=== PATIENT | male | born 1950 | race Caucasian/White ===

== ENCOUNTER 2019-06-24 14:40 | Inpatient (IN) | payer MEDICARE, OTHER ==
[~2019-06-24] VITALS: Ht 185.4 cm; Wt 75.0 kg
[2019-06-24] MEDS ORDERED: nitroGLYCERIN 0.4mg SUBLingual tab SL ONE (14:49)
--- NOTE | 2019-06-24 14:56 | NUR ---
COMFIRMED PT DOES NOT TAKE ANY ERECTILE DYSFUNCTION MEDICATIONS AND ADMINISTERED NITRO ORDERED
[2019-06-24 15:07] LABS: BASOPHILS # (AUTO) 0.1 X10'3 (0-0.2); BASOPHILS % (AUTO) 0.3 % (0-1); EOSINOPHILS % (AUTO) 0.1 % (0-6); HEMATOCRIT 42.8 % (42.0-52.0); HEMOGLOBIN 14.4 g/dl (14.0-17.9); LYMPHOCYTES # (AUTO) 0.8 X10'3 (1.1-4.8); LYMPHOCYTES % (AUTO) 4.1 % (21-51); MEAN CORPUSCULAR HEMOGLOBIN 31.2 PG (27.0-31.0); MEAN CORPUSCULAR HGB CONC 33.7 g/dL (33.0-36.5); MEAN CORPUSCULAR VOLUME 92.6 FL (78-98); MEAN PLATELET VOLUME 9.4 FL (7.4-10.4); MONOCYTES # (AUTO) 1.2 X10'3 (0-0.9); MONOCYTES % (AUTO) 6.4 % (2-12); NEUTROPHILS # (AUTO) 16.6 X10'3 (1.8-7.7); NEUTROPHILS % (AUTO) 89.1 % (42-75); PLATELET COUNT 322 X10'3 (140-440); RED BLOOD COUNT 4.62 X10'6 (4.70-6.10); RED CELL DISTRIBUTION WIDTH 13.5 % (11.5-14.5); WHITE BLOOD COUNT 18.7 X10'3 (4.5-11.0)
[2019-06-24 15:16] LABS: PARTIAL THROMBOPLASTIN TIME 28 SECONDS (22-32)
[2019-06-24 15:19] LABS: ALANINE AMINOTRANSFERASE 84 U/L (12-78); ALBUMIN 2.1 G/DL (3.4-5.0); ALBUMIN/GLOBULIN RATIO 0.5 (1.1-1.5); ALKALINE PHOSPHATASE 80 IU/L (46-116); ANION GAP 10 (8-16); ASPARTATE AMINO TRANSFERASE 39 U/L (10-37); BILIRUBIN,TOTAL 1.2 MG/DL (0.1-1.0); BLOOD UREA NITROGEN 23 MG/DL (7-18); CALCIUM 7.4 MG/DL (8.5-10.1); CHLORIDE 102 MMOL/L (99-107); CREATININE 1.21 MG/DL (0.60-1.10); GLUCOSE 102 MG/DL (70-104); POTASSIUM 3.5 MMOL/L (3.5-5.1); SODIUM 138 MMOL/L (135-145); TOTAL CARBON DIOXIDE 25.9 MMOL/L (24-32); TOTAL PROTEIN 6.1 G/DL (6.4-8.2); eGFR 59 ML/MIN
[2019-06-24] MEDS ORDERED: nitroGLYCERIN 0.4mg/hour patch TD ONE (15:20)
[2019-06-24] MEDS ORDERED: normal saline 1000ML IV soln IVB ONE (15:20)
[2019-06-24] MEDS ORDERED: CefTRIAXone 2gm/D5W 50ml 50 ML IV ONE (15:35)
[2019-06-24] MEDS ORDERED: azithromycin/NS 500mg/250ml 250 ML IV ONE (15:35)
[2019-06-24] MEDS ORDERED: magnesium hydroxide 30ml (MOM) UD suspension PO PRN (16:05)
[2019-06-24] MEDS ORDERED: acetaminophen 325mg tablet PO PRN (16:05)
[2019-06-24] MEDS ORDERED: ondansetron/PF 4mg/2ml inj IV PRN (16:05)
[2019-06-24] MEDS ORDERED: mag hydrox/Alum hydrox/simeth 30ml oral suspension PO PRN (16:05)
[2019-06-24] MEDS: normal saline 1000ml 1,000 ML IV SCH (16:32)
[2019-06-24] MEDS ORDERED: iohexol 350MG/ML 100ml bottle IV ONE (17:53)
--- NOTE | 2019-06-24 17:54 | NUR ---
Pt out to CT
--- NOTE | 2019-06-24 18:35 | NUR ---
Patient in room PCU 3012. I have received report from Monserrat MACK and had the opportunity to ask questions and assume patient care.
[2019-06-24] MEDS: enoxaparin 80mg/0.8ml syringe SUBCUT SCH (19:45)
[2019-06-24] MEDS ORDERED: heparin, porcine 5000 units/ml vial SQ SCH (20:00)
[2019-06-24 22:00] VITALS: BP 116/68
--- NOTE | 2019-06-24 22:00 | NUR ---
ED nurse reported that pt had not urinated at all during time in ED. I asked pt to void after being transferred to PCU and again at 2200. Bladder scan showed 8 mL in bladder.
[2019-06-25 02:00] VITALS: BP 118/64
--- NOTE | 2019-06-25 02:24 | NUR ---
Paged Dr. Estrada: BarraganSteve [id number]- Dx: pneumonia. VS stable, 92% on RA. Just wants sleeping pill because he hasn't been able to sleep for the past couple days, is exhausted. Thanks [phone] Judy
[2019-06-25] MEDS ORDERED: temazepam 15mg capsule PO PRN (02:35)
--- NOTE | 2019-06-25 02:37 | NUR ---
Paged Dr. Estrada MESSAGE: Steve Barragan [phone]- Pharmacy said Restoril is a capsule and can't be cut in half for 7.5 mg. Can he have 15 mg or melatonin instead? Thank you [phone] Judy
[2019-06-25 03:13] LABS: BASOPHILS # (AUTO) 0.2 X10'3 (0-0.2); BASOPHILS % (AUTO) 0.6 % (0-1); EOSINOPHILS % (AUTO) 0.2 % (0-6); HEMATOCRIT 38.8 % (42.0-52.0); LYMPHOCYTES # (AUTO) 1.4 X10'3 (1.1-4.8); LYMPHOCYTES % (AUTO) 5.1 % (21-51); MEAN CORPUSCULAR HEMOGLOBIN 31.2 PG (27.0-31.0); MEAN CORPUSCULAR HGB CONC 33.5 g/dL (33.0-36.5); MEAN PLATELET VOLUME 8.8 FL (7.4-10.4); MONOCYTES # (AUTO) 1.2 X10'3 (0-0.9); MONOCYTES % (AUTO) 4.7 % (2-12); NEUTROPHILS # (AUTO) 23.5 X10'3 (1.8-7.7); NEUTROPHILS % (AUTO) 89.4 % (42-75); PLATELET COUNT 290 X10'3 (140-440); RED BLOOD COUNT 4.17 X10'6 (4.70-6.10); RED CELL DISTRIBUTION WIDTH 13.4 % (11.5-14.5)
[2019-06-25] MEDS: temazepam 15mg capsule PO PRN ×2 (03:19→22:58)
[2019-06-25 03:29] LABS: ALBUMIN 1.9 G/DL (3.4-5.0); ANION GAP 6 (8-16); BLOOD UREA NITROGEN 20 MG/DL (7-18); BUN/CREATININE RATIO 16.8 (5.4-32.0); CALCIUM 7.5 MG/DL (8.5-10.1); CHLORIDE 104 MMOL/L (99-107); CREATININE 1.19 MG/DL (0.60-1.10); GLUCOSE 87 MG/DL (70-104); POTASSIUM 3.8 MMOL/L (3.5-5.1); SODIUM 138 MMOL/L (135-145); TOTAL CARBON DIOXIDE 27.6 MMOL/L (24-32); eGFR 60 ML/MIN
[2019-06-25 03:35] LABS: WHITE BLOOD COUNT 26.3 X10'3 (4.5-11.0)
--- NOTE | 2019-06-25 03:46 | NUR ---
PAGE TO -3012 Yoly CARRANZA HAS CRITICAL WBC 26.3. CURRENTLY ON ROCEPHIN AND ZITHROMAX
[2019-06-25] MEDS: normal saline 1000ml 1,000 ML IV SCH (04:23)
[2019-06-25 06:00] VITALS: BP 107/70
--- NOTE | 2019-06-25 06:22 | NUR ---
Problems reprioritized. Patient report given, questions answered & plan of care reviewed with Juanito RN.
--- NOTE | 2019-06-25 06:25 | NUR ---
Patient in room PCU 3012. I have received report from MARTINA Kim and had the opportunity to ask questions and assume patient care.
[2019-06-25] MEDS: enoxaparin 80mg/0.8ml syringe SUBCUT SCH ×2 (07:41→20:27)
[2019-06-25] MEDS ORDERED: CefTRIAXone 2gm/D5W 50ml 50 ML IV SCH (08:00)
[2019-06-25] MEDS ORDERED: azithromycin/NS 500mg/250ml 250 ML IV SCH (08:00)
--- NOTE | 2019-06-25 08:30 | NUR ---
Dr. Rose aware of pt's critically high WBC 26.3-orders received, blood cultures drawn this am and MD states he will write further orders for new antibiotic medication.
[2019-06-25] MEDS ORDERED: CEFTAROLINE FOSAMIL IV SCH (09:15)
[2019-06-25] MEDS ORDERED: NORMAL SALINE IV SCH (09:15)
[2019-06-25 09:59] LABS: TOTAL CELLS COUNTED 100
[2019-06-25] MEDS ORDERED: pneumococcal 23-VAL P-sac vacc 25 mcg/0.5ml vial IMVAC ONE (10:00)
[2019-06-25] MEDS ORDERED: FLU VACC QS2019-20(6MOS UP)/PF 60 MCG/0.5 ML SYRINGE IMVAC ONE (10:00)
[2019-06-25 10:07] LABS: PLATELET ESTIMATE NORMAL; TOXIC GRANULATION 2+
[2019-06-25] MEDS ORDERED: NO HOME MEDS (11:32)
[2019-06-25] MEDS: cefepime 2g/NS 100ml ADVANTAGE 100 ML IV SCH ×2 (11:51→20:28)
[2019-06-25 15:00] VITALS: BP 115/64
--- NOTE | 2019-06-25 16:02 | NUR ---
Malnutrition consult: Pt admit w/ PNA and transaminitis s/p EKG. Pt see by RD and reports wt loss mostly r/t inability to sleep for days effecting PO. Pt has normal strength, no visible signs of muscle/fat wasting, no edema/wounds, and PO at least 50% breakfast left on table during RD visit. At this time pt fails to meet minimum malnutrition criteria. Will continue to monitor. Addendum: 06/25/19 at [address] Amended: Links added.
[2019-06-25 18:00] VITALS: BP 126/59
--- NOTE | 2019-06-25 18:30 | NUR ---
Patient in room PCU 3012. I have received report from MARTINA Cervantes and had the opportunity to ask questions and assume patient care.
--- NOTE | 2019-06-25 18:43 | NUR ---
Problems reprioritized. Patient report given, questions answered & plan of care reviewed with Adrienne Sosa RN and MARTINA Marinelli.
[2019-06-25 22:00] VITALS: BP 146/76
[2019-06-25 23:39] LABS: URINE AMPHETAMINE SCREEN NEGATIVE (Neg); URINE BARBITUATE SCREEN NEGATIVE (Neg); URINE BENZODIAZEPINES SCREEN NEGATIVE (Neg); URINE CANNABINOID SCREEN POSITIVE (Neg); URINE COCAINE SCREEN NEGATIVE (Neg); URINE METHADONE SCREEN NEGATIVE (Neg); URINE OPIATE SCREEN NEGATIVE (Neg); URINE PHENCYCLIDINE SCREEN NEGATIVE (Neg)
[2019-06-26] VITALS (7 sets, daily range): BP systolic 141–161; BP diastolic 77–98
[2019-06-26 06:02] LABS: BASOPHILS # (AUTO) 0.1 X10'3 (0-0.2); BASOPHILS % (AUTO) 0.5 % (0-1); EOSINOPHILS # (AUTO) 0.5 X10'3 (0-0.9); EOSINOPHILS % (AUTO) 3.7 % (0-6); HEMATOCRIT 37.1 % (42.0-52.0); HEMOGLOBIN 12.4 g/dl (14.0-17.9); LYMPHOCYTES # (AUTO) 1.4 X10'3 (1.1-4.8); LYMPHOCYTES % (AUTO) 10.6 % (21-51); MEAN CORPUSCULAR HEMOGLOBIN 31.3 PG (27.0-31.0); MEAN CORPUSCULAR HGB CONC 33.4 g/dL (33.0-36.5); MEAN CORPUSCULAR VOLUME 93.6 FL (78-98); MEAN PLATELET VOLUME 8.9 FL (7.4-10.4); MONOCYTES # (AUTO) 0.8 X10'3 (0-0.9); MONOCYTES % (AUTO) 5.9 % (2-12); NEUTROPHILS # (AUTO) 10.2 X10'3 (1.8-7.7); NEUTROPHILS % (AUTO) 79.3 % (42-75); PLATELET COUNT 330 X10'3 (140-440); RED BLOOD COUNT 3.97 X10'6 (4.70-6.10); RED CELL DISTRIBUTION WIDTH 13.3 % (11.5-14.5); WHITE BLOOD COUNT 12.9 X10'3 (4.5-11.0)
[2019-06-26 06:08] LABS: ALBUMIN 1.7 G/DL (3.4-5.0); ANION GAP 6 (8-16); BLOOD UREA NITROGEN 19 MG/DL (7-18); BUN/CREATININE RATIO 17.3 (5.4-32.0); CALCIUM 7.5 MG/DL (8.5-10.1); CHLORIDE 107 MMOL/L (99-107); GLUCOSE 88 MG/DL (70-104); POTASSIUM 3.6 MMOL/L (3.5-5.1); SODIUM 140 MMOL/L (135-145); TOTAL CARBON DIOXIDE 27.4 MMOL/L (24-32); eGFR 66 ML/MIN
--- NOTE | 2019-06-26 06:13 | NUR ---
Problems reprioritized. Patient report given, questions answered & plan of care reviewed with Shavon Gonzalez RN and MARTINA Graf.
--- NOTE | 2019-06-26 06:13 | NUR ---
Problems reprioritized. Patient report given, questions answered & plan of care reviewed with Sowmya RN.
--- NOTE | 2019-06-26 06:29 | NUR ---
Patient in room PCU 3012. I have received report from Adrienne/MARTINA Marinelli and had the opportunity to ask questions and assume patient care.
[2019-06-26] MEDS: cefepime 2g/NS 100ml ADVANTAGE 100 ML IV SCH ×2 (08:32→20:02)
[2019-06-26] MEDS: enoxaparin 80mg/0.8ml syringe SUBCUT SCH (08:32)
[2019-06-26] MEDS ORDERED: regadenoson 0.4mg/5ml syringe IV ONE (09:15)
[2019-06-26] MEDS ORDERED: nitroGLYCERIN 0.4mg SUBLingual tab SL PRN (09:15)
[2019-06-26] MEDS ORDERED: metoprolol tartrate 1mg/ml inj IV PRN (09:15)
[2019-06-26] MEDS ORDERED: aminophylline 250mg/10ml inj. IV PRN (09:15)
[2019-06-26] MEDS ORDERED: fluconazole 100mg tablet PO ONE (12:45)
--- NOTE | 2019-06-26 18:22 | NUR ---
Problems reprioritized. Patient report given, questions answered & plan of care reviewed with Wayne RN.
--- NOTE | 2019-06-26 18:24 | NUR ---
Patient in room PCU 3012. I have received report from Shavon Vazquez RN and had the opportunity to ask questions and assume patient care.
--- NOTE | 2019-06-26 18:25 | NUR ---
[place] documentation: I have reviewed and agree with interventions, assessments performed and documented by Lesia MACK. [place] Medication Administration: For this medication-pass time frame, medication were reviewed, dispensed, administered and documented per hospital policy by Lesia MACK.
--- NOTE | 2019-06-26 18:43 | NUR ---
NOTIFIED PAGER ID: [phone] MESSAGE: Steve Barragan, [phone]- pt has a AAA [id number] noted in chest CTA, pt BP is currently 161/84. no bp medications in EMAR please advise. Wayne MACK
[2019-06-26] MEDS ORDERED: hydrALAZINE 20mg/ml inj. IV PRN (19:00)
[2019-06-26] MEDS: lactobacillus rhamnosus 10,000 MMU CELLS/CAPSULE PO SCH (20:02)
[2019-06-27] VITALS (15 sets, daily range): BP systolic 141–171; BP diastolic 68–90
[2019-06-27 02:10] LABS: BASOPHILS % (AUTO) 0.6 % (0-1); EOSINOPHILS # (AUTO) 0.3 X10'3 (0-0.9); EOSINOPHILS % (AUTO) 3.8 % (0-6); HEMATOCRIT 37.9 % (42.0-52.0); HEMOGLOBIN 12.7 g/dl (14.0-17.9); LYMPHOCYTES # (AUTO) 1.1 X10'3 (1.1-4.8); LYMPHOCYTES % (AUTO) 13.3 % (21-51); MEAN CORPUSCULAR HGB CONC 33.6 g/dL (33.0-36.5); MEAN CORPUSCULAR VOLUME 92.2 FL (78-98); MEAN PLATELET VOLUME 8.7 FL (7.4-10.4); MONOCYTES # (AUTO) 0.6 X10'3 (0-0.9); MONOCYTES % (AUTO) 6.5 % (2-12); NEUTROPHILS # (AUTO) 6.5 X10'3 (1.8-7.7); NEUTROPHILS % (AUTO) 75.8 % (42-75); PLATELET COUNT 357 X10'3 (140-440); RED BLOOD COUNT 4.11 X10'6 (4.70-6.10); RED CELL DISTRIBUTION WIDTH 13.2 % (11.5-14.5); WHITE BLOOD COUNT 8.6 X10'3 (4.5-11.0)
[2019-06-27 02:15] LABS: ALBUMIN 1.6 G/DL (3.4-5.0); ANION GAP 6 (8-16); BLOOD UREA NITROGEN 16 MG/DL (7-18); BUN/CREATININE RATIO 15.5 (5.4-32.0); CALCIUM 7.9 MG/DL (8.5-10.1); CHLORIDE 105 MMOL/L (99-107); CREATININE 1.03 MG/DL (0.60-1.10); GLUCOSE 102 MG/DL (70-104); POTASSIUM 3.7 MMOL/L (3.5-5.1); SODIUM 136 MMOL/L (135-145); TOTAL CARBON DIOXIDE 25.5 MMOL/L (24-32); eGFR 71 ML/MIN
[2019-06-27] MEDS ORDERED: enoxaparin 40mg/0.4ml syringe SUBCUT SCH (08:00)
[2019-06-27] MEDS ORDERED: fluconazole 100mg tablet PO SCH (08:00)
[2019-06-27] MEDS: cefepime 2g/NS 100ml ADVANTAGE 100 ML IV SCH (08:17)
[2019-06-27] MEDS: lactobacillus rhamnosus 10,000 MMU CELLS/CAPSULE PO SCH (08:18)
[2019-06-27] MEDS ORDERED: aminophylline inj. 10 ML IV ONE (10:08)
[2019-06-27] MEDS ORDERED: FLUC100T PO (12:14)
[2019-06-27] MEDS ORDERED: LEVO750T21 PO (12:14)
[2019-06-27] MEDS ORDERED: CARV3.12 PO (12:16)
[2019-06-27] MEDS ORDERED: LISI2.5T2 PO (12:16)
[2019-06-27] MEDS ORDERED: ATOR20TA PO (13:26)
[2019-06-27] MEDS ORDERED: ASPI81TA52 PO (13:26)
[2019-06-27] MEDS ORDERED: CLOP75TA15 PO (13:26)
--- NOTE | 2019-06-27 14:57 | NUR ---
1400 discharged home: Written Instructions provided, Pt. understands the necessity of finding a PCP for follow up medical monitoring. New discharge medications are called to the pharmacist at [facility]. Transportation home is arranged by nursing and approved for taxi ride by Nursing Termite Treater Helper. Pt. drives and will drive his own vehicle to pickler helper his discharge medications. All belongings are with Pt. and he is in stable condition and steady on his feet and also without any incidence of chest pain today.
== END 2019-06-27 15:43 | disposition home or self-care (01) | DRG 871 ==
LOC: ER 14:40 → ED HOLD 16:03 → PCU 3S 19:15
PROVIDERS: ADMIT Family Medicine; ATTEND Family Medicine
PROC: B32T1ZZ Computerized Tomography (CT Scan) of Left Pulmonary Artery using Low Osmolar Contrast (ICD-10-PCS; 2019-06-24)
PROC: B3201ZZ Computerized Tomography (CT Scan) of Thoracic Aorta using Low Osmolar Contrast (ICD-10-PCS; 2019-06-24)
PROC: B32S1ZZ Computerized Tomography (CT Scan) of Right Pulmonary Artery using Low Osmolar Contrast (ICD-10-PCS; 2019-06-24)
PROC: 3E02340 Introduction of Influenza Vaccine into Muscle, Percutaneous Approach (ICD-10-PCS; principal; 2019-06-25)
PROC: 3E0234Z Introduction of Serum, Toxoid and Vaccine into Muscle, Percutaneous Approach (ICD-10-PCS; 2019-06-25)
PROC: 4A02XM4 Measurement of Cardiac Total Activity, External Approach (ICD-10-PCS; 2019-06-27)
PROC: 3E033HZ Introduction of Radioactive Substance into Peripheral Vein, Percutaneous Approach (ICD-10-PCS; 2019-06-27)
DX: A41.9 Sepsis, unspecified organism (principal); J18.1 Lobar pneumonia, unspecified organism; I21.29 ST elevation (STEMI) myocardial infarction involving other sites; I42.9 Cardiomyopathy, unspecified; F12.90 Cannabis use, unspecified, uncomplicated; R07.89 Other chest pain; F17.210 Nicotine dependence, cigarettes, uncomplicated; I45.10 Unspecified right bundle-branch block; N28.9 Disorder of kidney and ureter, unspecified; R74.0 Nonspecific elevation of levels of transaminase and lactic acid dehydrogenase [LDH]; Z23 Encounter for immunization; Z71.6 Tobacco abuse counseling
CPT/HCPCS: 36415; 71045; 71275; 78452; 80048; 80053; 80305; 82948; 83605; 84484; 85025; 85610; 85730; 87040; 87070; 87081; 90732; 93005; 93017; 93306; 96365; 99285; A9500; G0378; J0280; J0456; J0692; J0696; J0712; J1650; J2785; J7030; Q9967

== ENCOUNTER 2022-12-03 18:46 | Inpatient (IN) | payer MEDICARE ==
[~2022-12-03] VITALS: Ht 180.3 cm; Wt 65.9 kg
[~2022-12-03 18:46] MED LIST: ATOR20TA PO; CARV3.12 PO; CLOP75TA15 PO; LISI2.5T14 PO
[2022-12-03 19:47] LABS: BASOPHILS # (AUTO) 0.1 X10'3 (0-0.2); BASOPHILS % (AUTO) 0.8 % (0-1); EOSINOPHILS # (AUTO) 0.2 X10'3 (0-0.9); EOSINOPHILS % (AUTO) 2.9 % (0-6); HEMATOCRIT 47.6 % (42.0-52.0); HEMOGLOBIN 15.9 g/dl (14.0-17.9); LYMPHOCYTES % (AUTO) 26.9 % (21-51); MEAN CORPUSCULAR HEMOGLOBIN 30.9 PG (27.0-31.0); MEAN CORPUSCULAR HGB CONC 33.3 g/dL (33.0-36.5); MEAN CORPUSCULAR VOLUME 92.9 FL (78-98); MEAN PLATELET VOLUME 9.9 FL (7.4-10.4); MONOCYTES # (AUTO) 0.6 X10'3 (0-0.9); MONOCYTES % (AUTO) 8.6 % (2-12); NEUTROPHILS # (AUTO) 4.5 X10'3 (1.8-7.7); NEUTROPHILS % (AUTO) 60.8 % (42-75); PLATELET COUNT 174 X10'3 (140-440); RED BLOOD COUNT 5.13 X10'6 (4.70-6.10); RED CELL DISTRIBUTION WIDTH 13.9 % (11.5-14.5); WHITE BLOOD COUNT 7.3 X10'3 (4.5-11.0)
[2022-12-03 20:01] LABS: ALANINE AMINOTRANSFERASE 38 U/L (12-78); ALBUMIN 3.7 G/DL (3.4-5.0); ALKALINE PHOSPHATASE 109 IU/L (46-116); ANION GAP 7 (8-16); ASPARTATE AMINO TRANSFERASE 32 U/L (10-37); BILIRUBIN,TOTAL 0.6 MG/DL (0.1-1.0); BLOOD UREA NITROGEN 19 MG/DL (7-18); BUN/CREATININE RATIO 14.7 (10.0-20.0); CALCIUM 9.2 MG/DL (8.5-10.1); CHLORIDE 105 MMOL/L (99-107); CREATININE 1.29 MG/DL (0.60-1.10); GLUCOSE 72 MG/DL (70-104); POTASSIUM 4.3 MMOL/L (3.5-5.1); SODIUM 142 MMOL/L (135-145); TOTAL CARBON DIOXIDE 29.7 MMOL/L (24-32); TOTAL PROTEIN 7.4 G/DL (6.4-8.2); eGFR 55 ML/MIN
[2022-12-03] MEDS ORDERED: temazepam 15mg capsule PO PRN (21:00)
[2022-12-03 22:11] LABS: CLARITY,URINE CLEAR (Clear); COLOR,URINE YELLOW (Yellow); GLUCOSE, URINE NEGATIVE (Neg); KETONES,URINE NEGATIVE (Neg); LEUKOCYTE ESTERASE ,URINE NEGATIVE (Neg); NITRITES, URINE NEGATIVE (Neg); OCCULT BLOOD,URINE NEGATIVE (Neg); PROTEIN,URINE NEGATIVE (Neg); UROBILINOGEN,URINE 0.2 E.U/dL (0.2-1.0)
[2022-12-03 22:15] LABS: UA COLLECTION TYPE CLN CATCH MIDSTREAM
[2022-12-03 22:24] LABS: URINE AMPHETAMINE SCREEN NEGATIVE (Neg); URINE BARBITUATE SCREEN NEGATIVE (Neg); URINE BENZODIAZEPINES SCREEN NEGATIVE (Neg); URINE CANNABINOID SCREEN POSITIVE (Neg); URINE COCAINE SCREEN NEGATIVE (Neg); URINE METHADONE SCREEN NEGATIVE (Neg); URINE OPIATE SCREEN NEGATIVE (Neg); URINE PHENCYCLIDINE SCREEN NEGATIVE (Neg)
[2022-12-03] MEDS ORDERED: ondansetron/PF 4mg/2ml inj IV PRN (22:45)
[2022-12-03] MEDS ORDERED: HYDROcodone/acetaminophen 5mg/325mg tablet PO PRN (22:45)
[2022-12-03] MEDS ORDERED: morphine 2 MG/ML inj. syringe IV PRN (22:45)
[2022-12-03] MEDS ORDERED: magnesium 2GM in 50ml NS 50 ML IV PRN (22:45)
[2022-12-03] MEDS ORDERED: potassium Cl 20 mEq SR tablet PO PRN ×2 (22:45)
[2022-12-03] MEDS ORDERED: acetaminophen 325mg tablet PO PRN ×2 (22:45)
[2022-12-03] MEDS ORDERED: magnesium Cl slow-release 64mg tablet PO PRN (22:45)
[2022-12-03] MEDS ORDERED: magnesium 4gm in 100ml NS 100 ML IV PRN (22:45)
[2022-12-03] MEDS ORDERED: potassium Cl 40MEQ/1/2NS 520ml 520 ML IV PRN (22:45)
[2022-12-03 23:05] LABS: D-DIMER 0.41 MG/L FEU (0-0.50)
[2022-12-04 03:19] LABS: ALANINE AMINOTRANSFERASE 30 U/L (12-78); ALBUMIN 3.3 G/DL (3.4-5.0); ALBUMIN/GLOBULIN RATIO 1.1 (1.1-1.5); ALKALINE PHOSPHATASE 93 IU/L (46-116); ANION GAP 9 (8-16); ASPARTATE AMINO TRANSFERASE 24 U/L (10-37); BILIRUBIN,TOTAL 0.5 MG/DL (0.1-1.0); BLOOD UREA NITROGEN 20 MG/DL (7-18); BUN/CREATININE RATIO 16.7 (10.0-20.0); CALCIUM 8.8 MG/DL (8.5-10.1); CHLORIDE 106 MMOL/L (99-107); GLUCOSE 103 MG/DL (70-104); POTASSIUM 3.9 MMOL/L (3.5-5.1); SODIUM 140 MMOL/L (135-145); TOTAL CARBON DIOXIDE 24.9 MMOL/L (24-32); TOTAL PROTEIN 6.4 G/DL (6.4-8.2); eGFR 59 ML/MIN
[2022-12-04 03:24] LABS: BASOPHILS # (AUTO) 0.1 X10'3 (0-0.2); EOSINOPHILS # (AUTO) 0.3 X10'3 (0-0.9); EOSINOPHILS % (AUTO) 4.2 % (0-6); HEMOGLOBIN 14.4 g/dl (14.0-17.9); LYMPHOCYTES # (AUTO) 1.7 X10'3 (1.1-4.8); LYMPHOCYTES % (AUTO) 25.6 % (21-51); MEAN CORPUSCULAR HEMOGLOBIN 30.6 PG (27.0-31.0); MEAN CORPUSCULAR HGB CONC 32.8 g/dL (33.0-36.5); MEAN CORPUSCULAR VOLUME 93.2 FL (78-98); MEAN PLATELET VOLUME 9.7 FL (7.4-10.4); MONOCYTES # (AUTO) 0.6 X10'3 (0-0.9); MONOCYTES % (AUTO) 9.5 % (2-12); NEUTROPHILS # (AUTO) 3.9 X10'3 (1.8-7.7); NEUTROPHILS % (AUTO) 58.7 % (42-75); PLATELET COUNT 168 X10'3 (140-440); RED BLOOD COUNT 4.72 X10'6 (4.70-6.10); RED CELL DISTRIBUTION WIDTH 13.8 % (11.5-14.5); WHITE BLOOD COUNT 6.6 X10'3 (4.5-11.0)
[2022-12-04] MEDS ORDERED: DONE10TA19 PO (03:33)
[2022-12-04] MEDS ORDERED: ALBU6.7H14 INH (03:33)
[2022-12-04] MEDS ORDERED: ASPI-1071 PO (03:33)
[2022-12-04] MEDS ORDERED: NITR0.4T51 SL (03:34)
[2022-12-04] MEDS ORDERED: CARV3.122 PO (03:40)
[2022-12-04] MEDS ORDERED: CLOP-32 PO (03:40)
[2022-12-04] MEDS ORDERED: albuterol 2.5 MG/3 ML nebule NEB PRN (04:35)
--- NOTE | 2022-12-04 05:02 | NUR ---
PAGER ID: [phone] MESSAGE: Steve Barragan in ER 8, admitted for SOB. Pt is agitated, anxious, HR 105, BP 164/108. O2 95% on room air. States he feels like he is short of breath. Would you like to try ativan and/or lasix? Gianna MACK [phone]
[2022-12-04] MEDS ORDERED: LORazepam 2 mg/ml vial IV ONE (05:05)
--- NOTE | 2022-12-04 05:05 | NUR ---
Verbal orders for Ativan 1 mg IV one time for anxiety.
[2022-12-04] MEDS ORDERED: clopidogrel 75mg tablet PO SCH (08:00)
[2022-12-04] MEDS ORDERED: heparin, porcine 5000 units/ml vial SQ SCH (08:00)
[2022-12-04] MEDS ORDERED: carVEDilol 3.125mg tablet PO SCH (08:00)
[2022-12-04] MEDS ORDERED: aspirin 81mg, enteric-coated 1 TAB TABLET.DR PO SCH (08:00)
[2022-12-04] MEDS ORDERED: levoFLOXACIN 750MG TABLET PO SCH (12:00)
[2022-12-04] MEDS ORDERED: ipratropium/albuterol 3ml nebule NEB PRN (12:00)
[2022-12-04] MEDS ORDERED: prednisone 10mg tablet PO SCH (12:00)
[2022-12-04] MEDS ORDERED: predniSONE 5mg tablet PO SCH (12:02)
[2022-12-04 12:22] LABS: HEMOGLOBIN A1C 5.7 % (4.5-6.2)
[2022-12-04] MEDS ORDERED: predniSONE 20 mg tablet PO SCH ×2 (12:24→12:27)
[2022-12-04 12:29] LABS: CHOL/HDL RATIO 4.7 (0.00-4.99); CHOLESTEROL 161 MG/DL (0-200); HDL CHOLESTEROL 34 MG/DL (35-60); LDL CHOLESTEROL 114 MG/DL (50-100); MAGNESIUM 2.3 MG/DL (1.5-2.4); PHOSPHORUS 3.8 MG/DL (2.3-4.5); TRIGLYCERIDES 78 MG/DL (20-135)
[2022-12-04 12:33] VITALS: BP 149/94
[2022-12-04] MEDS ORDERED: ipratropium/albuterol 3ml nebule NEB SCH (14:00)
[2022-12-04] MEDS ORDERED: nicotine 14mg patch - 24hr TD SCH (15:30)
--- NOTE | 2022-12-04 16:51 | NUR ---
AT APPROX 1620, PT WAS SEEN WALKING AROUND THE ER, ASKED IF HE COULD BE HELPED. PT STATES THAT HE WAS STRETCHING HIS LEGS. HE WAS ASKED IF HE WAS A PT, AND HE RESPONDED YES. PT WAS TOLD HE COULD NOT WALK AROUND THE ER AND THAT HE HAD TO GO BACK TO HIS ROOM. AT THAT MOMENT A WOMAN WALKED UP TO THE PT STATING "YOU CAN'T WALK AROUND HERE, LETS GO, WE ARE GOING TO GO BACK", AND THE PT WENT WITH THE WOMAN BACK TO HIS ROOM IT WAS ASSUMED. PT'S RN NOTED THAT PT WAS NOT IN HIS ROOM AND WAS NO WHERE TO BE FOUND. PT'S DIRECTOR OF STAFF DEVELOPMENT/DAUGHTER WAS CALLED, STATED THAT THE PT CALLED COMPLAINING NO ONE WAS TALKING TO HIM. DAUGHTER WAS INFORMED THAT PT HAS BEEN ADMITTED AND THAT WE WERE WAITING FOR A ROOM ON THE FLOOR FOR HIM. CONCHITA WAS TOLD OF THE SITUATION WITH THE PT AND WALKING THE ER HALLS AND DISCRIBED THE WOMAN THAT WAS WITH HIM TO HER. DAUGHTER STATED THAT SHE THOUGHT SHE KNEW WHO IT WAS AND SHE WILL CONTACT THE WOMAN AND WILL CALL BACK. DAUGHTER WAS INFORMED THAT THE PT HAD AN IV IN PLACE AT THE TIME HE LEFT.
--- NOTE | 2022-12-04 17:38 | NUR ---
PT'S DAUGHTER HAS NOT CALLED BACK WITH REGARDS TO PT RETURNING. DR THOMAS WAS PAGED, NURSING VOLCANOLOGY PROFESSOR WAS NOTIFIED AND ABELINO WAS CALLED FOR A WELFAIR CHECK AT THE PT'S HOME AND PIV REMOVAL.
[2022-12-04] MEDS ORDERED: PRED20TA PO ×2 (21:14→21:18)
[2022-12-04] MEDS ORDERED: CIPR-202 PO ×2 (21:15→21:18)
== END 2022-12-04 16:20 | disposition left against medical advice (07) | DRG 190 ==
LOC: ER 18:47 → ED HOLD 22:45 → UNDOADMIN 22:58 → ED HOLD 22:58 → UNDODISIN 12-04 16:20 → EDBEDREQ 12-04 16:39
PROVIDERS: ADMIT Internal Medicine; ATTEND Family Medicine
DX: J44.1 Chronic obstructive pulmonary disease with (acute) exacerbation (principal); I21.A1 Myocardial infarction type 2; I50.21 Acute systolic (congestive) heart failure; F03.90 Unspecified dementia, unspecified severity, without behavioral disturbance, psychotic disturbance, mood disturbance, and anxiety; Z66 Do not resuscitate; Z53.29 Procedure and treatment not carried out because of patient's decision for other reasons; F32.A Depression, unspecified; I25.10 Atherosclerotic heart disease of native coronary artery without angina pectoris; F17.210 Nicotine dependence, cigarettes, uncomplicated; F12.90 Cannabis use, unspecified, uncomplicated; F15.90 Other stimulant use, unspecified, uncomplicated; R77.8 Other specified abnormalities of plasma proteins; Z79.899 Other long term (current) drug therapy; I25.2 Old myocardial infarction; Z87.01 Personal history of pneumonia (recurrent)
CPT/HCPCS: 36415; 71045; 80053; 80061; 80305; 81003; 83036; 83735; 83880; 84100; 84145; 84443; 84484; 85025; 85379; 93005; 93306; 94640; 94760; 99285; G0378; J1644; J2060; J7512

== ENCOUNTER 2022-12-04 19:34 | Emergency (ER) | payer MEDICARE ==
[~2022-12-04] VITALS: Ht 182.9 cm; Wt 54.0 kg
[~2022-12-04 19:34] MED LIST changes: +ALBU6.7H14 INH; +ASPI-1071 PO; +CARV3.122 PO; +CLOP-32 PO; +DONE10TA19 PO; +NITR0.4T51 SL
[2022-12-04 20:02] VITALS: BP 151/88
--- NOTE | 2022-12-04 21:12 | NUR ---
iv dc'd pt being discharged dressing applied
[2022-12-04] MEDS ORDERED: PRED20TA PO ×2 (21:14→21:18)
[2022-12-04] MEDS ORDERED: CIPR-202 PO ×2 (21:15→21:18)
== END 2022-12-04 21:32 | disposition left against medical advice (07) ==
LOC: ER 19:36
DX: J44.9 Chronic obstructive pulmonary disease, unspecified (principal); F12.10 Cannabis abuse, uncomplicated; F15.10 Other stimulant abuse, uncomplicated; Z79.899 Other long term (current) drug therapy; Z79.82 Long term (current) use of aspirin
CPT/HCPCS: 99283